=== PATIENT | female | born 1980 | race Caucasian/White ===

== ENCOUNTER 2022-09-10 23:39 | Emergency (ER) | payer BC ==
[~2022-09-10] VITALS: Ht 172.7 cm; Wt 61.2 kg
--- NOTE | 2022-09-11 00:03 | NUR ---
BIBS FOR C/O L SIDED CP RADIATING TO L SHOULDER SINCE 1699 , WORSE FOR THE PST FEW HOURS. + DIZZINESS, -N/V
--- NOTE | 2022-09-11 00:44 | NUR ---
URINE SAMPLE COLLECTED. CALLED LAB FOR P/U
[2022-09-11 00:46] LABS: BASOPHILS % (AUTO) 0.6 % (0.0-2.0); EOSINOPHILS % (AUTO) 2.3 % (0.0-6.0); HEMATOCRIT 42 % (33-45); HEMOGLOBIN 13.9 g/dL (11.5-14.8); LYMPHOCYTES # (AUTO) 2.5 K/uL (0.8-4.8); LYMPHOCYTES % (AUTO) 38.7 % (20.0-44.0); MEAN CORPUSCULAR HGB CONC 34 g/dl (31.0-36.0); MEAN CORPUSCULAR VOLUME 92 fL (82-100); MONOCYTES # (AUTO) 0.7 K/uL (0.1-1.30); NEUTROPHILS # (AUTO) 3.2 K/uL (1.8-8.9); NEUTROPHILS % (AUTO) 48.4 % (43.0-81.0); PLATELET COUNT (AUTO) 264 K/uL (150-450); RED BLOOD CELL COUNT(AUTO) 4.53 MIL/uL (4.0-5.2); WHITE BLOOD COUNT (AUTO) 6.5 K/uL (4.3-11.0)
[2022-09-11 01:38] LABS: THYROID STIMULATING HORMONE 0.977 uIU/mL (0.358-3.74)
--- NOTE | 2022-09-11 01:39 | NUR ---
RAD AT BED SIDE
[2022-09-11 01:40] LABS: CARBON DIOXIDE 24 mmol/L (21-32); CHLORIDE 104 mmol/L (98-107); CREATININE 0.9 mg/dL (0.6-1.3); GLUCOSE 101 mg/dL (74-106); POTASSIUM 3.4 mmol/L (3.5-5.1); SODIUM SERUM 136 mmol/L (136-145); UREA NITROGEN, BLOOD 23 mg/dL (7-18)
--- NOTE | 2022-09-11 02:03 | NUR ---
IV removed. Catheter intact and site benign. Pressure and 4x4 applied to site. No bleeding noted.Patient discharged to home in stable condition. Written and verbal after care instructions given. Patient verbalizes understanding of instruction.
[2022-09-11 02:08] VITALS: BP 117/66
== END 2022-09-11 02:08 | disposition home or self-care (01) ==
LOC: ER 23:42
DX: R07.9 Chest pain, unspecified (principal); R00.2 Palpitations; E03.9 Hypothyroidism, unspecified
CPT/HCPCS: 36415; 71045-TC; 80048-TC; 83880; 84439-TC; 84443-TC; 84484-TC; 84703-TC; 85025-TC; 85378-TC